=== PATIENT | male | born 1960 | race Caucasian/White ===

== ENCOUNTER → 2023-08-23 15:09 | Outpatient (BNVA) | payer OTHER, SELFPAY | PROVIDERS: PCP Family Medicine; Visit Provider Nurse Practitioner Family | DX: M25.50 Pain in unspecified joint (principal); Z12.5 Encounter for screening for malignant neoplasm of prostate; I10 Essential (primary) hypertension; M25.561 Pain in right knee; M25.562 Pain in left knee; M25.531 Pain in right wrist; M25.532 Pain in left wrist | CPT/HCPCS: 80053; 80061; 82306; 82607; 83735; 84443; 84550; 85025; 85651; 86038; 86140; 86200; 86431; G0103 ==

== ENCOUNTER → 2023-09-14 16:36 | Outpatient (BNVA) | payer OTHER, SELFPAY | PROVIDERS: PCP Family Medicine; Visit Provider Nurse Practitioner Family | DX: M19.032 Primary osteoarthritis, left wrist (principal); M25.531 Pain in right wrist; M25.532 Pain in left wrist; M25.561 Pain in right knee; M25.562 Pain in left knee | CPT/HCPCS: 73110 ==

== ENCOUNTER → 2024-04-03 11:54 | Outpatient (BNVA) | payer OTHER, SELFPAY | PROVIDERS: PCP Family Medicine; Visit Provider Internal Medicine Rheumatology | DX: Z79.899 Other long term (current) drug therapy (principal); M19.90 Unspecified osteoarthritis, unspecified site; Z11.1 Encounter for screening for respiratory tuberculosis; Z11.59 Encounter for screening for other viral diseases; M05.79 Rheumatoid arthritis with rheumatoid factor of multiple sites without organ or systems involvement; Z71.85 Encounter for immunization safety counseling; Z79.52 Long term (current) use of systemic steroids | CPT/HCPCS: 36415; 80076; 82306; 82565; 85025; 85651; 86140; 86480; 86704; 86803; 87340; 87522 ==

== ENCOUNTER 2024-07-11 15:00 | Outpatient (CLI) | payer OTHER, MEDICAID, SELFPAY ==
[2024-07-17 12:44] LABS: Hepatitis C Genotype RNA 1a
== END 2024-07-11 15:01 | disposition home or self-care (01) ==
LOC: LAB 15:02
PROVIDERS: PCP Nurse Practitioner Family; Visit Provider Student in an Organized Health Care Education/Training Program
DX: B19.20 Unspecified viral hepatitis C without hepatic coma (principal)
CPT/HCPCS: 36415; 87902

== ENCOUNTER 2024-07-24 14:29 | Outpatient (CLI) | payer OTHER, MEDICAID, SELFPAY ==
--- NOTE | 2024-07-24 15:15 | US_ITS ---
WS: [id number] RIGHT UPPER QUADRANT ULTRASOUND HISTORY: B19.20 - Unspecified viral hepatitis C without hepatic coma COMPARISON: None available. Liver: 14.0 cm in length. Surface of the liver is very slightly undulating and irregular which can be seen with cirrhosis. No mass or bile duct dilatation. Portal Vein: Normal hepatopetal flow with monophasic waveform. Gallbladder: Normally distended gallbladder with no stones or wall thickening. CBD: 0.4 cm Pancreas: Partially visualized. The body appears normal. The head and tail are not visualized. Right kidney: 9.5 cm in length. Normal size and echogenicity. No hydronephrosis or mass. Aorta and IVC: Unremarkable abdominal aorta and IVC. No ascites. US/US liver [id number] IMPRESSION: 1. Negative gallbladder. 2. Mild hepatic cirrhosis. No mass.
== END 2024-07-24 14:30 | disposition home or self-care (01) ==
LOC: RAD 14:31
PROVIDERS: PCP Nurse Practitioner Family; Visit Provider Student in an Organized Health Care Education/Training Program
DX: B19.20 Unspecified viral hepatitis C without hepatic coma (principal); K74.60 Unspecified cirrhosis of liver
CPT/HCPCS: 76705

== ENCOUNTER → 2024-07-25 10:53 | Outpatient (BNVA) | payer OTHER, MEDICAID, SELFPAY | PROVIDERS: PCP Nurse Practitioner Family; Visit Provider Student in an Organized Health Care Education/Training Program | DX: Z11.4 Encounter for screening for human immunodeficiency virus [HIV] (principal); Z79.899 Other long term (current) drug therapy; B19.20 Unspecified viral hepatitis C without hepatic coma; R76.8 Other specified abnormal immunological findings in serum | CPT/HCPCS: 36415; 80053; 81596; 87806 ==

== ENCOUNTER 2024-12-26 13:47 | Outpatient (CLI) | payer MEDICARE, OTHER, SELFPAY | END 2024-12-26 13:48 | disposition home or self-care (01) | LOC: LAB 13:49 | PROVIDERS: PCP Nurse Practitioner Family; Visit Provider Internal Medicine Rheumatology | DX: R76.8 Other specified abnormal immunological findings in serum (principal); B19.20 Unspecified viral hepatitis C without hepatic coma | CPT/HCPCS: 36415; 87517; 87522 ==

== ENCOUNTER 2025-03-13 12:17 | Outpatient (CLI) | payer MEDICARE, MEDICAID, SELFPAY ==
[2025-03-13 12:34] VITALS: PULSE 54; RESP 18; O2SAT 96
[2025-03-13] MEDS: albuterol 2.5 mg/3 mL Neb INHALATION (12:34)
== END 2025-03-13 12:18 | disposition home or self-care (01) ==
PROVIDERS: PCP Nurse Practitioner Family; Visit Provider Family Medicine
DX: R06.2 Wheezing (principal)
CPT/HCPCS: 94060; 94726; 94729; J7613

== ENCOUNTER → 2025-04-25 14:33 | Outpatient (BNVA) | payer MEDICARE, MEDICAID, SELFPAY | PROVIDERS: PCP Nurse Practitioner Family; Visit Provider Internal Medicine Rheumatology | DX: M05.79 Rheumatoid arthritis with rheumatoid factor of multiple sites without organ or systems involvement (principal); Z79.899 Other long term (current) drug therapy; Z71.85 Encounter for immunization safety counseling; Z79.52 Long term (current) use of systemic steroids | CPT/HCPCS: 36415; 80076; 82565; 85025; 85651; 86140; 99214 ==

== ENCOUNTER 2025-06-12 13:58 | Outpatient (CLI) | payer MEDICARE, MEDICAID, SELFPAY ==
--- NOTE | 2025-06-12 14:07 | XRR_ITS ---
PROCEDURE INFORMATION: Exam: XR Lumbosacral Spine Exam date and time: 06/12/2025 2:38 PM Age: 64 years old Clinical indication: Low back pain TECHNIQUE: Imaging protocol: Radiologic exam of the lumbosacral spine. Views: 4 or 5 views. COMPARISON: No relevant prior studies available. FINDINGS: Bones/joints: No acute fracture or acute appearing subluxation. There is at least moderate diffuse lumbar degenerative change with loss of disc space and osteophyte formation. Advanced lumbar facet arthropathy. A couple of levels of minimal chronic listhesis are probably related to facet arthropathy. Equivocal old L5 pars defects bilaterally. Soft tissues: Advanced diffuse vascular calcification noted. XR/XR lumbar spine min 4V [id number] IMPRESSION: 1. No acute findings. 2. Chronic findings above.
[2025-06-12 15:52] LABS: Hematocrit 45.7 % (37-53); Hemoglobin 15.10 g/dL (11.27-16.99); Mean Corpuscular HGB Conc 33.0 g/dL (30-55); Mean Corpuscular Hemoglobin 31.7 pg (27-33); Mean Corpuscular Volume 95.8 fl (82-101); Nucleated Red Blood Cells % 0 %; Platelet Count 223 10^3/cmm (157-399); Red Blood Count 4.77 10^6/uL (3.85-5.65); White Blood Count 7.24 10^3/uL (3.29-11.43)
[2025-06-12 16:16] LABS: Alanine Aminotransferase 15 U/L (0-41); Albumin Level 3.8 g/dL (3.5-5.2); Alkaline Phosphatase 78 U/L (40-130); Aspartate Amino Transferase 18 U/L (0-40); Globulin 3.4 g/dL (1.3-4.6); Total Protein 7.2 g/dL (6.6-8.7)
== END 2025-06-12 13:59 | disposition home or self-care (01) ==
LOC: RAD 14:02
PROVIDERS: Family Provider Internal Medicine Rheumatology; PCP Nurse Practitioner Family; Visit Provider Family Medicine
DX: Z79.899 Other long term (current) drug therapy (principal); M05.79 Rheumatoid arthritis with rheumatoid factor of multiple sites without organ or systems involvement; M79.89 Other specified soft tissue disorders; M51.360 Other intervertebral disc degeneration, lumbar region with discogenic back pain only; M46.96 Unspecified inflammatory spondylopathy, lumbar region; M43.16 Spondylolisthesis, lumbar region
CPT/HCPCS: 36415; 72110; 80076; 82565; 85025; 85651; 86140

== ENCOUNTER → 2025-07-18 10:03 | Outpatient (BNVA) | payer MEDICARE, MEDICAID, SELFPAY | PROVIDERS: PCP Nurse Practitioner Family; Visit Provider Internal Medicine Rheumatology | DX: M05.79 Rheumatoid arthritis with rheumatoid factor of multiple sites without organ or systems involvement (principal); Z79.899 Other long term (current) drug therapy; Z71.85 Encounter for immunization safety counseling; Z79.52 Long term (current) use of systemic steroids | CPT/HCPCS: 99214 ==

== ENCOUNTER → 2025-11-20 14:49 | Outpatient (BNVA) | payer MEDICARE, MEDICAID, SELFPAY | PROVIDERS: PCP Family Medicine; Visit Provider Orthopaedic Surgery | DX: M51.360 Other intervertebral disc degeneration, lumbar region with discogenic back pain only (principal); M48.062 Spinal stenosis, lumbar region with neurogenic claudication | CPT/HCPCS: 72110; 99203 ==